=== PATIENT | female | born 2005 | race Caucasian/White ===

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

== ENCOUNTER 2024-06-25 12:31 | Emergency (ER) | payer OTHER ==
[~2024-06-25] VITALS: Wt 138.3 kg
[2024-06-25] MEDS ORDERED: Ketorolac Tromethamine 30 MG/ML VIAL IM ONE (12:45)
[2024-06-25] MEDS ORDERED: MELOXICAM15 MG PO (12:49)
[2024-06-25] MEDS ORDERED: CYCLOBENZAPRINE10 MG PO (12:49)
[2024-06-25] MEDS ORDERED: Cyclobenzaprine Hydrochlorid 10 MG TAB PO ONE (12:50)
== END 2024-06-25 13:24 | disposition home or self-care (01) ==
LOC: ED 12:31
DX: M54.50 Low back pain, unspecified (principal); M62.830 Muscle spasm of back; Z79.899 Other long term (current) drug therapy; Z88.1 Allergy status to other antibiotic agents; Z91.012 Allergy to eggs